=== PATIENT | male | born 1965 | race Caucasian/White ===

== ENCOUNTER 2021-12-04 12:42 | Emergency (ER) | payer MEDICAID, SELFPAY ==
[2021-12-04] VITALS (28 sets, daily range): BP systolic 114–142; BP diastolic 82–95; PULSE 81–120; RESP 10–23; TEMP 37; O2SAT 88–100
--- NOTE | ~2021-12-04 | XR_ITS ---
EXAMINATION: XR chest 2V DATE: 12/04/2021 14:14 INDICATION: Possible aspiration TECHNIQUE: AP and lateral views of the chest are obtained. COMPARISON: None available FINDINGS: The lungs are free of acute opacities. No pleural effusion or pneumothorax. The cardiomedia stinal silhouette is normal. There is moderate thoracic spondylosis. Surgical clips in the right uppe r quadrant are likely from prior cholecystectomy. IMPRESSION: 1. No acute cardiopulmonary abnormality. Reviewed, dictated and finalized at location A.
--- NOTE | ~2021-12-04 | XR_ITS ---
EXAM: XR shoulder LT min 2V DATE: 12/04/2021 14:14 HISTORY: fall, shoulder pain . COMPARISON: None available. FINDINGS: Normal mineralization. No fracture. AC joint widening, to 9 mm. Distal clavicle aligned wi th the acromion. Normal coracoclavicular distance. No lytic or blastic lesion. Joint spaces are maint ained. No erosion or periosteal change. Soft tissues within normal limits. IMPRESSION: Low-grade (type I) AC ligament sprain, likely acute if accompanied by acute pain/tenderne ss. Reviewed, dictated and finalized at location K. IMPRESSION: Low-grade (type I) AC ligament sprain, likely acute if accompanied by acute pain/tenderness.
--- NOTE | ~2021-12-04 | CT_ITS ---
EXAMINATION: CT thoracic lumbar wo con DATE: 12/04/2021 13:55 INDICATION: fall . TECHNIQUE: Computed tomography (CT) of the thoracic and lumbar spine was performed intravenous intrav enous contrast. The dose-length product was 557.22 mGy-cm. COMPARISON: None FINDINGS: THORACIC SPINE: Vertebral body alignment intact. Exaggerated kyphosis. Mild anterior wedge deformity at T11 and T12. Multilevel degenerative disc disease. No traumatic malalignment or fracture. Visualized lung parenchy ma is clear. Coronary artery calcification. LUMBAR SPINE: 5 nonrib-bearing lumbar-type vertebral bodies. Pedicles intact. Normal vertebral body alignment. Mild anterior wedge deformity, involving L2-L4. Disc spaces maintained. Normal facets and posterior eleme nts. No acute fracture. Healing left transverse process fractures. Severe central canal narrowing at T12-L1 and L4-5. Multilevel severe degenerative disc disease, severe bilateral neural foraminal narro wing, and severe facet arthropathy. Bilateral SI joint fusion. IMPRESSION: 1. Presumed chronic or physiologic mild anterior wedge deformities at T11-12 and L2-L4. 2. Severe degenerative change in the lumbar spine. Reviewed, dictated and finalized at location K. IMPRESSION: 1. Presumed chronic or physiologic mild anterior wedge deformities at T11-12 an d L2-L4. 2. Severe degenerative change in the lumbar spine.
--- NOTE | ~2021-12-04 | CT_ITS ---
EXAMINATION: CT brain wo con DATE: 12/04/2021 13:54 INDICATION: fall, head trauma . TECHNIQUE: Computed tomography (CT) of the head was performed without intravenous contrast. The mA wa s adjusted according to patient size. Iterative reconstruction technique was employed. The dose-lengt h product was 605.33 mGy-cm. COMPARISON: None FINDINGS: No acute intracranial hemorrhage or extra-axial fluid collection. No hydrocephalus, mass, or herniation. No acute ischemic infarct. Unremarkable dural venous sinus attenuation. No acute osseous abnormality. Left orbital/cheek swelling. The aerated spaces are clear. Mild atrophy and chronic white matter change. Atherosclerotic intracranial calcifications. IMPRESSION: No acute intracranial process. Reviewed, dictated and finalized at location K.
--- NOTE | ~2021-12-04 | XR_ITS ---
EXAMINATION: XR ankle LT min 3V DATE: 12/04/2021 14:14 INDICATION: Left ankle pain post fall TECHNIQUE: Anteroposterior, oblique, mortise, and lateral views of the left ankle were obtained. COMPARISON: None. FINDINGS: Alignment is normal. No fracture. Joint spaces are well maintained. No ankle joint effusion. The so ft tissues are unremarkable. IMPRESSION: 1. Negative left ankle radiographs. Reviewed, dictated and finalized at location B.
--- NOTE | ~2021-12-04 | CT_ITS ---
EXAMINATION: CT cervical spine wo con DATE: 12/04/2021 13:54 INDICATION: fall, neck pain TECHNIQUE: Computed tomography (CT) of the cervical spine was performed without intravenous contrast. Automated exposure control and iterative reconstruction technique were employed. The dose-length pro duct was 155.72 mGy-cm. COMPARISON: None FINDINGS: Vertebral Body Alignment: Intact. Craniocervical and atlantoaxial alignment: Moderate degenerative change. Alignment intact. Osseous structures/fracture: No evidence of a lytic or blastic process in the visualized spine. No e vidence of acute fracture. Cervical soft tissues: The paraspinal soft tissues planes are maintained. Apical pleural scarring. Pl eural blebs. Degenerative changes: Multilevel degenerative disc disease. Bilateral severe neural foraminal narrowi ng at C6-7. No severe central canal narrowing. IMPRESSION: No acute fracture or traumatic malalignment in the cervical spine. Reviewed, dictated and finalized at location K.
--- NOTE | ~2021-12-04 | XR_ITS ---
EXAMINATION: XR hip BI 2V w AP pelvis DATE: 12/04/2021 14:14 INDICATION: Hip pain. Fall. TECHNIQUE: An anteroposterior view of the pelvis and 2 views of each hip were obtained. COMPARISON: None. FINDINGS: Bone alignment is normal. No fracture. There is moderate lumbar spondylosis. The hip joint spaces are normal. IMPRESSION: 1. No fracture. Reviewed, dictated and finalized at location A. IMPRESSION: 1. No fracture.
--- NOTE | ~2021-12-04 | CT_ITS ---
EXAMINATION: CT chest abdomen pelvis w con DATE: 12/04/2021 22:02 INDICATION: trauma, pt intoxicated, reporting severe CP, abd . TECHNIQUE: Computed tomography (CT) of the chest, abdomen, and pelvis was performed with 100 mL Omnip aque-350 intravenous contrast. Automated exposure control and iterative reconstruction technique were employed. The dose-length product was 447.72 mGy-cm. COMPARISON: None FINDINGS: CHEST: No thoracic aortic injury. Aortic arch calcification. No mediastinal hematoma. No pericardial effusion. Coronary artery calcification. No acute lung injury. No pleural effusion or pneumothorax. Left apical pleural bleb. Emphysematous change. Bibasilar atelec tasis/scar. ABDOMEN/PELVIS: No solid organ injury. Cholecystectomy. Steatosis. No evidence of bowel or mesenteric injury. Diffuse colonic wall edema. Diverticulosis without diverti culitis. No free fluid or free air. No retroperitoneal hematoma. Pelvic contents are atraumatic. MUSCULOSKELETAL: No acute fracture. No fracture or traumatic malalignment of the thoracic or lumbar spine. Presumed physiologic mild ante rior wedge deformity at T11 and T12 as well as L2-L4. Subacute/chronic healing left lumbar transverse process fractures. Severe degenerative change in the lumbar spine. Bilateral sacroiliac joint fusion . IMPRESSION: No acute process detected in the chest, abdomen, or pelvis. Steatosis. Infectious, inflammatory, or i schemic colitis. Reviewed, dictated and finalized at location K. IMPRESSION: No acute process detected in the chest, abdomen, or pelvis. Steatosis. Infectio us, inflammatory, or ischemic colitis.
--- NOTE | 2021-12-04 12:53 | ED.FALL ---
HPI - Fall General Chief Complaint: Fall <Danika Lamb MD - Last Filed: 12/04/21 22:50> Stated Complaint: ETOH+, fall <Danika Lamb MD - Last Filed: 12/04/21 22:50> Time Seen by Provider: 12/04/21 12:53 <Danika Lamb MD - Last Filed: 12/04/21 22:50> Source: patient and EMS <Danika Lamb MD - Last Filed: 12/04/21 22:50> Mode of arrival: EMS <Danika Lamb MD - Last Filed: 12/04/21 22:50> Limitations: intoxication <Danika Lamb MD - Last Filed: 12/04/21 22:50> History of Present Illness HPI Narrative: The patient is a 56-year-old male with a history of alcohol abuse presenting to the emergency department for evaluation following a fall. Patient states that he was at a motel when he fell backwards hitting his head. Patient is unsure if he lost consciousness or passed out. Patient is currently alert and oriented to person, place. He is able to follow commands. He is reporting aching upper neck pain, middle back pain, left shoulder pain, left hip pain and left ankle pain. Patient states that he typically drinks 1/5 daily; he reports that his last alcohol intake was yesterday approximately 10 PM. Reportedly, patient stated to EMS that he was drinking this morning. Pt states he is from [place] and visiting his father who lives in this area. He is quite intoxicated at time of assessment. <Danika Lamb MD - Last Filed: 12/04/21 22:50> Related Data Home Medications: Home Medications Medication Instructions Recorded Confirmed No Home Medications 12/04/21 12/04/21 <Danika Lamb MD - Last Filed: 12/04/21 22:50> Allergies/Adverse Reactions: Allergies Allergy/AdvReac Type Severity Reaction Status Date / Time No Known Allergies Allergy Verified 12/04/21 12:53 <Danika Lamb MD - Last Filed: 12/04/21 22:50> Review of Systems Review of Systems: ROS unobtainable: Yes unobtainable due to medical condition (Alcohol intoxication) <Danika Lamb MD - Last Filed: 12/04/21 22:50> [facility] Social History Social History: Social History (Updated 12/04/21 @ 22:49 by Danika Lamb MD) Smoking status: Current every day smoker Alcohol intake: current Alcohol use details: Heavy Substance use: never Living arrangements: alone Occupation/Education: unemployed 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 CONSTITUTIONAL: The patient appears well-developed and well-nourished. No distress. HEAD: Normocephalic, left eyebrow laceration, superficial, 0.25 mm, no gaping, no bleeding EYES: PERRL, EOMI, normal conjunctiva, anicteric EARS: External ears clear bilaterally, no hemotympanum MOUTH: OP clear, no erythema, exudates NECK: midline trachea, supple, FROM. Cervical collar is in place. Positive midline cervical spinal tenderness. CARDIOVASCULAR: Normal rate, regular rhythm, normal heart sounds and intact distal pulses. No murmurs, rubs, gallops. PULMONARY: Effort normal and breath sounds normal. No respiratory distress. The patient has no wheezes, rales, ronchi. Positive bilateral chest wall tenderness without crepitus or ecchymoses. ABDOMINAL: Soft. Nontender, nondistended. No palpable masses Pelvis is stable to anterior and lateral compression although this does elicit pain bilaterally. EXTREMITIES:: moving all extremities symmetrically. -RUE: No deformity. Normal ROM at shoulder, elbow, wrist, and hand. Sensation intact M/U/R. Pulse 2+. -LUE: No deformity. Decreased range of motion at the left shoulder secondary to pain. No squaring off of the shoulder. Intact sensation overlying the deltoid. No deformities overlying the clavicle. Intact flexion and extension of the leftelbow, wrist, and hand., Sensation intact M/U/R. Pulse 2+. Ecchymosis to the left
--- NOTE | 2021-12-04 12:55 | ECG_ITS ---
Measurements Intervals [place] Rate: 99 P: 70 NE: 156 QRS: -30 QRSD: 108 T: 53 QT: 349 QTc: 448 Interpretive Statements SINUS RHYTHM INCOMPLETE RIGHT BUNDLE BRANCH BLOCK [90+ ms QRS DURATION, TERMINAL R IN V1/V2, 40+ ms S IN I/aVL/V4/V5/V6] NO PREVIOUS ECG AVAILABLE FOR COMPARISON Electronically Signed On 12-05-2021 14:36:57 CDT by Wanda Rosario M.D.
[2021-12-04 13:28] LABS: Basophils Absolute Auto 0.2 K/mm3 (0.0-0.1); Basophils Percent Auto 2.4 % (0.2-1.2); Eosinophils Percent Auto 0.3 % (0-4.4); Hematocrit 32.2 % (42.0-52.0); Hemoglobin 10.1 g/dL (14.0-18.0); Immature Granulocyte Absolute 0.03 K/mm3 (0.00-0.031); Immature Granulocyte Percent A 0.4 % (0-0.5); Lymphocytes Absolute Auto 3.69 K/mm3 (0.9-3.2); Lymphocytes Percent Auto 54.5 % (18.3-44.2); Mean Corpuscular HGB Conc 31.4 g/dl (32-36); Mean Corpuscular Hemoglobin 31.1 pg (26-34); Mean Corpuscular Volume 99.1 fl (80-100); Mean Platelet Volume 8.3 fl (7.4-10.4); Monocytes Absolute Auto 0.6 K/mm3 (0.1-0.6); Monocytes Percent Auto 8.6 % (2.6-8.5); Neutrophils Absolute Auto 2.3 K/mm3 (1.3-6.7); Neutrophils Percent Auto 33.8 % (45.5-73.1); Platelet Count Result 331 k/mm3 (150-375); Red Blood Count 3.25 M/mm3 (4.6-6.20); Red Cell Distribution Width 18.7 % (11.5-14.5); White Blood Count 6.8 K/mm3 (4.5-10.0)
[2021-12-04] MEDS: THIAMINE HCL 200 MG/2 ML VIAL 100 MG IV PUSH (13:41)
[2021-12-04] MEDS: MORPHINE SULFATE (*CRX) 4 MG/ML INJ IV PUSH (13:42)
[2021-12-04] MEDS: SODIUM CHLORIDE 0.9% IV 1,000 ML 999 ML IV CONT (13:42)
[2021-12-04] MEDS: TETANUS,DIPHTHERIA,AC PERTUSSIS ADULT (0.5 ML) BOOSTRIX IM (13:42)
[2021-12-04 13:43] LABS: Alanine Aminotransferase 19 U/L (6-50); Alkaline Phosphatase 106 U/L (38-126); Anion Gap 14 mmol/L (8-16); Aspartate Amino Transferase 57 U/L (17-59); Bilirubin,Total 0.3 mg/dL (0.2-1.3); Blood Urea Nitrogen 13 mg/dL (9-20); Calcium 8.1 mg/dL (8.4-10.2); Carbon Dioxide 26 mmol/L (22-30); Chloride 104 mmol/L (98-107); Estimated CRCL calculation 119 ml/min; Estimated Glomerular Filt Rate > 60; Glucose 92 mg/dL (65-110); Sodium 144 mmol/L (137-145)
[2021-12-04 13:55] LABS: Troponin I < 0.012 ng/mL (0.000-0.034)
[2021-12-04 14:15] LABS: Ethanol 352 mg/dL (<10)
[2021-12-04] MEDS: MORPHINE SULFATE (*CRX) 2 MG/ML INJ IV PUSH (14:32)
[2021-12-04 14:44] LABS: Add Urine Microscopic? NO; Appearance Urine Clear (Clear); Bilirubin Urine Negative (Negative); Blood Urine Negative (Negative); Color Urine Yellow (Yellow); Glucose Urine UA Negative (Negative); Ketones Urine Negative (Negative); Leukocyte Esterase Ur Negative LEU/UL (Negative); Nitrate Urine Negative (Negative); Protein Urine Negative (Negative); Specific Grav Ur 1.018 (1.001-1.035); Urobilinogen Urine Negative mg/dL (<2.0)
[2021-12-04] MEDS: THIAMINE HCL INJ 100 MG, FOLIC ACID INJ 1 MG, MULTIVITAMINS-12 INJ VIAL 1 5 ML, MULTIVI... IV CONT (14:57)
[2021-12-04 15:00] LABS: Barbiturate Screen Urine Negative (Negative); Benzodiazepines Screen Urine Positive (Negative)
[2021-12-04 15:14] LABS: Amphetamine Screen Urine Negative (Negative); Cannabinoid Screen Urine Negative (Negative); Cocaine Screen Urine Negative (Negative); Methadone Screen Urine Negative (Negative); Opiate Screen Urine Positive (Negative); Phencyclidine Screen Urine Negative (Negative)
--- NOTE | 2021-12-04 15:52 | PC.NURSE ---
unable to apply sling while IV infusing. Explained to pt. he will need to make arrangements for own ride; also made aware do not have discharge instructions or order yet and is with critical pt.
--- NOTE | 2021-12-04 16:08 | PC.NURSE ---
Refuses to keep 02 on. Took gown and monitor off. Monitor replaced. Pt advised to leave monitoring equipment in place.
--- NOTE | 2021-12-04 16:09 | PC.NURSE ---
no discharge orders for this pt. at this time; has used call light multiple times in 20 minutes and requested we make arrangements to transport him to his care multiple times. Explained to pt. each time we do not arrange transport; just explained to pt. he is not leaving the ED at this time due to his blood alcohol being well above the legal limit. Pt. has been repositioned, provided blankets, reattached to monitoring equipment. Curtain left open, fall precautions including bed alarm already present.
--- NOTE | 2021-12-04 17:06 | PC.NURSE ---
Pt sleeping on cart. When pt is awaken by staff he begins to moan.
[2021-12-04] MEDS: NICOTINE (*PBKC) 21 MG PATCH 1 PATCH TRANSDERM (19:13)
--- NOTE | 2021-12-04 20:25 | PC.NURSE ---
Pt c/o pain and asking for medication. EDP notified. No new orders.
[2021-12-04] MEDS: IBUPROFEN 400 MG TABLET PO (20:39)
--- NOTE | 2021-12-04 21:01 | PC.NURSE ---
Pt c/o pain asking for morphine. no new orders at this time.
[2021-12-04 21:32] LABS: D Dimer 1.36 ug/mL (<0.48)
[2021-12-05 00:06] VITALS: BP 142/88; PULSE 90; RESP 18; O2SAT 93
[2021-12-05 01:38] LABS: Ethanol < 10 mg/dL (<10)
[2021-12-05 02:34] VITALS: BP 154/90; PULSE 90; RESP 20; O2SAT 98
== END 2021-12-05 02:36 | disposition home or self-care (01) ==
PROVIDERS: Emergency Medicine; Emergency Provider Emergency Medicine
DX: S39.012A Strain of muscle, fascia and tendon of lower back, initial encounter (principal); R07.81 Pleurodynia; S43.52XA Sprain of left acromioclavicular joint, initial encounter; S00.212A Abrasion of left eyelid and periocular area, initial encounter; S50.812A Abrasion of left forearm, initial encounter; F10.10 Alcohol abuse, uncomplicated; Y90.8 Blood alcohol level of 240 mg/100 ml or more; Z23 Encounter for immunization; M51.36 Other intervertebral disc degeneration, lumbar region; I45.10 Unspecified right bundle-branch block; F17.200 Nicotine dependence, unspecified, uncomplicated; W19.XXXA Unspecified fall, initial encounter
CPT/HCPCS: 36415; 70450; 71046; 71260; 72125; 72128; 72131; 73030; 73521; 73610; 74177; 80053; 80307; 81003; 84484; 85025; 85380; 90471; 90715; 93005; 96361; 96365; 96366; 96376; 99284; A4565; A9270; J2270; J3411; J3475; J7030; Q9967